=== PATIENT | female | born 1965 | race African-American/Black ===

== ENCOUNTER 2019-09-01 09:47 | Emergency (ER) | payer MEDICAID ==
[~2019-09-01] VITALS: Ht 165.1 cm; Wt 67.0 kg
[2019-09-01] MEDS ORDERED: NALOXONE HCL 0.4 MG/ML 1ML VIAL IV STA (10:25)
[2019-09-01] MEDS ORDERED: NALOXONE HCL 1 MG/ML 2ML VIAL IV ONE (10:45)
[2019-09-01] MEDS ORDERED: NALOXONE HCL 0.4 MG/ML 1ML VIAL IV ONE (11:00)
[2019-09-01] MEDS ORDERED: HALOPERIDOL LACTATE 5MG/ML VIAL IM ONE (11:00)
[2019-09-01 11:29] LABS: BASOPHILS % 1.2 % (0.0-2.0); EOSINOPHILS % 1.1 % (0.0-5.0); HEMATOCRIT. 36.3 % (36.0-48.0); HEMOGLOBIN. 12.3 g/dL (12.0-16.0); LYMPHOCYTES % 45.9 % (20.0-50.0); MEAN CORPUSCULAR HEMOGLOBIN 32.5 pg (28.0-32.0); MEAN CORPUSCULAR VOLUME 96.2 fL (81.0-99.0); MEAN PLATELET VOLUME 8.4 fl (7.4-10.4); MONOCYTES % 5.4 % (2.0-8.0); NEUTROPHILS % 46.4 % (40.0-76.0); PLATELET 282 x1000/uL (130-400); RED BLOOD CELL COUNT 3.78 mill/uL (4.2-5.4)
[2019-09-01 11:29] LABS: CLARITY URINE CLEAR (CLEAR); COLOR URINE YELLOW (YELLOW); KETONES URINE NEGATIVE (NEGATIVE); LEUKOCYTE ESTERASE URINE NEGATIVE (NEGATIVE); NITRITE URINE NEGATIVE (NEGATIVE); OCCULT BLOOD URINE NEGATIVE (NEGATIVE); PROTEIN URINE NEGATIVE (NEGATIVE); SPECIFIC GRAVITY URINE 1.007 (1.005-1.030); UROBILINOGEN URINE 0.2 E.U./dL (0.2-1.0)
[2019-09-01 11:35] LABS: CHLORIDE 108 mEq/L (98-107)
[2019-09-01 11:43] LABS: CREATINE KINASE 174 IU/L (26-192)
[2019-09-01 11:45] LABS: *AMPHETAMINES SCREEN URINE NEGATIVE (NEGATIVE); *BARBITURATES SCREEN URINE NEGATIVE (NEGATIVE); *BENZODIAZEPINES SCREEN URINE NEGATIVE (NEGATIVE)
[2019-09-01 11:46] LABS: CANNABINOID URINE SCREEN NEGATIVE (NEGATIVE); METHADONE URINE SCREEN NEGATIVE (NEGATIVE); OPIATES URINE SCREEN NEGATIVE (NEGATIVE)
[2019-09-01 11:50] LABS: ETHANOL BLOOD 346 mg/dL
[2019-09-01 11:50] LABS: *COCAINE SCREEN URINE PRESUMTIVE POSITIVE (NEGATIVE); PHENCYCLIDINE URINE SCREEN PRESUMTIVE POSITIVE (NEGATIVE)
[2019-09-01 14:30] VITALS: BP 101/66
== END 2019-09-01 18:06 | disposition home or self-care (01) ==
LOC: EDBD 10:08 → ER 10:08
DX: F10.129 Alcohol abuse with intoxication, unspecified (principal); R41.82 Altered mental status, unspecified; R07.9 Chest pain, unspecified; I51.7 Cardiomegaly; Y90.8 Blood alcohol level of 240 mg/100 ml or more
CPT/HCPCS: 36415; 70450; 71045; 80053; 80305; 80307; 80320; 80329; 81003; 82550; 82962; 84484; 85025; 93005; 96372; 99284; J1630; G0480